=== PATIENT | female | born 1990 | race Hispanic/Latino ===

== ENCOUNTER 2017-06-12 00:29 | Emergency (ER) | payer SELFPAY ==
[2017-06-12 00:35] VITALS: BP 119/60; PULSE 98; RESP 18; TEMP 98.4; O2SAT 99
--- NOTE | 2017-06-12 01:16 | ED PDOC ---
HPI: Psych/Substance Abuse Time Seen by Provider: 06/12/17 01:00 Chief Complaint (Nursing): Alcohol Ingestion Chief Complaint (Provider): Alcohol Ingestion History Per: Patient, EMS History/Exam Limitations: no limitations Additional Complaint(s): 26 yo female, brought in by EMS, presents to the ED after being found wandering the street drunk, onset of just prior to arrival. She reports leaving a friend' s apartment after a night of drinking, but was then stopped by EMS staff and brought to the hospital. She admits to drinking beer, but denies any physical complaints, medical or surgical history, drugs or cigarette usage. Of note, her last menstrual period was on 05/21/2017. She was not able to recall the name of her primary doctor. Past Medical History Reviewed: Historical Data, Nursing Documentation, Vital Signs Vital Signs: Last Vital Signs Temp 98.4 F 06/12/17 00:31 Pulse 98 H 06/12/17 00:31 Resp 18 06/12/17 00:31 BP 119/60 06/12/17 00:31 Pulse Ox 99 06/12/17 00:31 - Medical History PMH: No Chronic Diseases - Surgical History Surgical History: No Surg Hx - Family History Family History: States: Unknown Family Hx - Social History Current smoker - smoking cessation education provided: No Ex-Smoker (has not smoked in the last 12 months): No Alcohol: Social Drugs: Denies - Allergies Allergies/Adverse Reactions: Allergies Allergy/AdvReac Type Severity Reaction Status Date / Time No Known Allergies Allergy Verified 06/12/17 00:31 Review of Systems ROS Statement: Except As Marked, All Systems Reviewed And Found Negative Constitutional: Positive for: Other (intoxicated ). Negative for: Fever Psych: Negative for: Suicidal ideation Physical Exam - Reviewed Nursing Documentation Reviewed: Yes Vital Signs Reviewed: Yes - Physical Exam Appears: Positive for: Well, Non-toxic, No Acute Distress Head Exam: Positive for: ATRAUMATIC, NORMOCEPHALIC Skin: Positive for: Normal Color, Warm, Dry Eye Exam: Positive for: EOMI, PERRL, Conjunctival injection (bilateral) Neck: Positive for: Painless ROM Cardiovascular/Chest: Positive for: Regular Rate, Rhythm. Negative for: Murmur Respiratory: Positive for: Normal Breath Sounds. Negative for: Decreased Breath Sounds, Accessory Muscle Use, Respiratory Distress Gastrointestinal/Abdominal: Positive for: Soft. Negative for: Tenderness, Distended, Guarding, Rebound Extremity: Positive for: Normal ROM Neurologic/Psych: Positive for: Alert, Oriented (x3), Cerebellar Tests (intact) , Gait (steady). Negative for: Motor/Sensory Deficits, Aphasia, Facial Droop - ECG O2 Sat by Pulse Oximetry: 99 Pulse Ox Interpretation: Normal Medical Decision Making Medical Decision Making: Time: --00:53 Impression: --Alcohol Ingestion Plan: --Patient will be released to the responsibility of the friend upon arrival to the ED, as patient is clinically stable for discharge home. Reassess --00:55 Spoke with the patient's friend, Sherly Leiva, the flatbed owner operator of the apartment where the patient was prior to arrival, and she stated that another friend, Ghazala Griffiths, will be coming to the ED to milk pickup driver the patient. Ghazala's Phone Number : [phone] Patient's friend Ghazala at bedside who is agreeable to taking the patient home at this time. On exam, patient remains AAOx3, in no acute distress. Lungs clear to auscultation, cardiac RRR, abdomen soft, non-tender, repeat neuro exam shows no focal findings. VSS, stable for discharge. Lab/Diagnostic results d/w the patient in great detail. Diagnosis of alcohol ingestion/alcohol intoxication d/w the patient. Based on history, exam and diagnostic results, plan will be for outpatient follow up. Patient instructed to follow-up with pmd / referral provided / the clinic in 1- 2 days without fail. Return to the emergency room at any time for any new or worsening symptoms. Patient states she fully agrees with and understands discharge instructions. States that she agrees with the plan and disposition. Verbalized and repeated discharge instructions and plan. I have given the patient opportunity to ask any additional questions. Scribe Attestation: Documented by Jamel Christianson acting as a scribe for Rosalie Rothman MD. Provider Attestation: All medical record entries made by the Scribe were at my direction and personally dictated by me. I have reviewed the chart and agree that the record accurately reflects my personal performance of the history, physical exam, medical decision making, and the department course for this patient. I have also personally directed, reviewed, and agree with the discharge instructions and disposition. Disposition - Clinical Impression Clinical Impression: Alcohol ingestion, Alcohol intoxication - Patient ED Disposition Is Patient to be Admitted: No Counseled Patient/Family Regarding: Diagnosis - Disposition Disposition: Routine/Home Disposition Time: 01:12 Condition: STABLE Additional Instructions: FOLLOW UP WITH PMD NEEDED. Instructions: Alcohol Use - When Is Drinking a Problem?, Effects of Alcohol on Your Health Forms: [facility] (Tunisian) Print Language: ANGOLAN - POA Present On Arrival: None
== END 2017-06-12 01:20 | disposition home or self-care (01) ==
LOC: H.ER 00:29
DX: F10.129 Alcohol abuse with intoxication, unspecified (principal)